=== PATIENT | male | born 1975 | race Asian ===

== ENCOUNTER 2017-09-16 11:40 | Emergency (ER) | payer OTHER ==
[2017-09-16] MEDS ORDERED: Bacitracin Oint 1 GM U/D Packet TOP ONE (11:48)
[2017-09-16] MEDS ORDERED: Lidocaine 1% 30 ML SDV INJECT ONE (11:48)
--- NOTE | 2017-09-16 12:04 | EDM.PDOC ---
ED HPI GENERAL MEDICAL PROBLEM - General Stated Complaint: FISH HOOK IN FINGER [phone] Time Seen by Provider: 09/16/17 11:58 Source of Information: Reports: Patient, Family, RN, RN Notes Reviewed History Limitations: Reports: Language Barrier - History of Present Illness INITIAL COMMENTS - FREE TEXT/NARRATIVE: Pt to ER with c/o fish hook stuck in ring finger of left hand. Patient states he is up to date on his tetanus vaccination Onset: Today, Sudden Right 4-Ring finger Pain Score (Numeric/FACES): 7 - Related Data Allergies Allergy/AdvReac Type Severity Reaction Status Date / Time No Known Allergies Allergy Verified 09/16/17 11:59 Home Meds: Home Meds . [No Known Home Meds] 09/16/17 [History] ED ROS GENERAL - Review of Systems Review Of Systems: ROS reveals no pertinent complaints other than HPI. ED EXAM, SKIN/RASH Exam: See Below Exam Limited By: No Limitations General Appearance: Alert, WD/WN, Mild Distress Eye Exam: Bilateral Eye: EOMI, Normal Inspection Ears: Normal External Exam, Hearing Grossly Normal Nose: Normal Inspection Throat/Mouth: Normal Inspection, Normal Voice, No Airway Compromise Head: Atraumatic, Normocephalic Neck: Normal Inspection, Supple, Non-Tender, Full Range of Motion Respiratory/Chest: No Respiratory Distress, Lungs Clear, Normal Breath Sounds, No Accessory Muscle Use, Chest Non-Tender Cardiovascular: Normal Peripheral Pulses, Regular Rate, Rhythm, No Edema, No Gallop, No JVD, No Murmur, No Rub Peripheral Pulses: 2+: Radial (L), Radial (R) GI/Abdominal: Normal Bowel Sounds, Soft, Non-Tender (Male) Exam: Deferred Rectal (Males) Exam: Deferred Back Exam: Normal Inspection, Full Range of Motion Extremities: Normal Inspection, Normal Range of Motion, Non-Tender, No Pedal Edema, Normal Capillary Refill Neurological: Alert, Oriented, CN II-XII Intact, Normal Cognition, Normal Gait, Normal Reflexes, No Motor/Sensory Deficits Psychiatric: Anxious Skin: Warm, Dry, Other (fish hook lodged past garrett in the right ring finger) Location, Skin: Upper Extremity, Right Lymphatic: No Adenopathy ED SKIN PROCEDURES - Foreign Body Removal Indication:: Fish hook lodged past garrett in right ring finger Consent Obtained:: Patient Performing Doctor:: Radha Bowen Anesthesia Type: Local Complications:: No Course - Vital Signs Last Recorded V/S: Last Vital Signs Temp 97.8 F 09/16/17 11:55 Pulse 68 09/16/17 11:55 Resp 16 09/16/17 11:55 BP 118/77 09/16/17 11:55 Pulse Ox 98 09/16/17 11:55 - Orders/Labs/Meds Meds: Medications Discontinued Medications Generic Name Dose Route Start Last Admin Trade Name Jessica PRN Reason Stop Dose Admin Bacitracin 1 dose 09/16/17 11:48 09/16/17 11:52 Bacitracin Oint 1 Gm TOP 09/16/17 11:49 1 dose ONETIME ONE Administration Lidocaine HCl 30 ml 09/16/17 11:48 09/16/17 11:52 Xylocaine-Mpf 1% INJECT 09/16/17 11:49 30 ml ONETIME ONE Administration Departure - Departure Time of Disposition: 12:02 Disposition: Home, Self-Care 01 Condition: Good Clinical Impression: Fish hook injury of finger of right hand Qualifiers: Encounter type: initial encounter Qualified Code(s): S69.91XA - Unspecified injury of right wrist, hand and finger(s), initial encounter - Discharge Information *PRESCRIPTION DRUG MONITORING PROGRAM REVIEWED*: No *COPY OF PRESCRIPTION DRUG MONITORING REPORT IN PATIENT ROSETTE: No Instructions: Puncture Wound, [id number] Forms: ED Department Discharge Additional Instructions: Keep area clean and dry Monitor for signs of infection such as redness, warmth, drainage, fever, chills Follow up with your primary care facility if necessary
== END 2017-09-16 12:10 | disposition home or self-care (01) ==
LOC: DL.ED 11:40
DX: S60.455A Superficial foreign body of left ring finger, initial encounter (principal); W45.8XXA Other foreign body or object entering through skin, initial encounter
CPT/HCPCS: 99282